=== PATIENT | female | born 2000 | race Hispanic/Latino ===

== ENCOUNTER 2021-10-31 18:41 | Emergency (ER) | payer SELFPAY ==
[~2021-10-31] VITALS: Ht 152.4 cm; Wt 62.6 kg
[2021-10-31] MEDS ORDERED: NAPROSYN500 MG PO (19:33)
== END 2021-10-31 20:10 | disposition home or self-care (01) ==
LOC: FSED 18:51
DX: R10.2 Pelvic and perineal pain (principal); N94.6 Dysmenorrhea, unspecified
CPT/HCPCS: 80053; 81003; 81025; 85025; 99283